=== PATIENT | female | born 1980 | race Caucasian/White ===

== ENCOUNTER 2017-07-25 18:30 | Observation (INO) | payer MEDICAID ==
[~2017-07-25] VITALS: Ht 172.7 cm; Wt 82.6 kg
[~2017-07-25 18:30] MED LIST: IBUP-2070 PO; PNV1TABL54 PO
[2017-07-25 18:46] VITALS: BP 104/60
== END 2017-07-25 19:10 | disposition home or self-care (01) ==
LOC: 4S 18:30
PROVIDERS: ADMIT Obstetrics & Gynecology; ATTEND Obstetrics & Gynecology
DX: O09.523 Supervision of elderly multigravida, third trimester (principal); Z3A.34 34 weeks gestation of pregnancy
CPT/HCPCS: 59025; G0378

== ENCOUNTER 2017-07-29 19:01 | Observation (INO) | payer MEDICAID ==
[~2017-07-29] VITALS: Ht 172.7 cm; Wt 83.1 kg
[2017-07-29] MEDS ORDERED: LEVO50 PO (20:18)
[2017-07-29 20:21] VITALS: BP 101/57
== END 2017-07-29 21:15 | disposition home or self-care (01) ==
LOC: 4S 19:01
PROVIDERS: ADMIT Obstetrics & Gynecology; ATTEND Obstetrics & Gynecology
DX: O09.523 Supervision of elderly multigravida, third trimester (principal); O99.283 Endocrine, nutritional and metabolic diseases complicating pregnancy, third trimester; E03.9 Hypothyroidism, unspecified; Z3A.35 35 weeks gestation of pregnancy
CPT/HCPCS: 59025; G0378

== ENCOUNTER 2017-08-08 12:00 | Observation (INO) | payer MEDICAID ==
[~2017-08-08] VITALS: Ht 172.7 cm; Wt 82.6 kg
[~2017-08-08 12:00] MED LIST changes: +LEVO50 PO
[2017-08-08] MEDS ORDERED: FERR-82 PO (12:17)
[2017-08-08 12:18] VITALS: BP 102/58
== END 2017-08-08 12:40 | disposition home or self-care (01) ==
LOC: 4S 12:00
PROVIDERS: ADMIT Obstetrics & Gynecology; ATTEND Obstetrics & Gynecology
DX: O09.523 Supervision of elderly multigravida, third trimester (principal); O99.283 Endocrine, nutritional and metabolic diseases complicating pregnancy, third trimester; E03.9 Hypothyroidism, unspecified; Z3A.36 36 weeks gestation of pregnancy
CPT/HCPCS: 59025; G0378

== ENCOUNTER 2017-08-11 08:00 | Observation (INO) | payer MEDICAID ==
[~2017-08-11] VITALS: Ht 170.2 cm; Wt 83.9 kg
[~2017-08-11 08:00] MED LIST changes: +FERR-82 PO; -IBUP-2070 PO
[2017-08-11 08:24] VITALS: BP 106/64
== END 2017-08-11 09:00 | disposition home or self-care (01) ==
LOC: 4S 08:00
PROVIDERS: ADMIT Obstetrics & Gynecology; ATTEND Obstetrics & Gynecology
DX: O09.523 Supervision of elderly multigravida, third trimester (principal); Z3A.36 36 weeks gestation of pregnancy
CPT/HCPCS: 59025; G0378

== ENCOUNTER 2017-08-15 18:30 | Observation (INO) | payer MEDICAID | END 2017-08-15 19:55 | disposition home or self-care (01) | LOC: 4S 18:30 | PROVIDERS: ADMIT Obstetrics & Gynecology; ATTEND Obstetrics & Gynecology | DX: O99.283 Endocrine, nutritional and metabolic diseases complicating pregnancy, third trimester (principal); E03.9 Hypothyroidism, unspecified; O09.523 Supervision of elderly multigravida, third trimester; Z3A.37 37 weeks gestation of pregnancy | CPT/HCPCS: 59025; G0378 ==

== ENCOUNTER 2017-08-18 18:35 | Observation (INO) | payer MEDICAID ==
[~2017-08-18] VITALS: Ht 172.7 cm; Wt 86.2 kg
== END 2017-08-18 19:40 | disposition home or self-care (01) ==
LOC: 4S 18:35
PROVIDERS: ADMIT Obstetrics & Gynecology; ATTEND Obstetrics & Gynecology
DX: O09.523 Supervision of elderly multigravida, third trimester (principal); Z3A.37 37 weeks gestation of pregnancy
CPT/HCPCS: 59025; G0378

== ENCOUNTER 2017-08-22 18:40 | Observation (INO) | payer MEDICAID | END 2017-08-22 19:15 | disposition home or self-care (01) | LOC: 4S 18:40 | PROVIDERS: ADMIT Obstetrics & Gynecology; ATTEND Obstetrics & Gynecology | DX: O09.523 Supervision of elderly multigravida, third trimester (principal); O99.283 Endocrine, nutritional and metabolic diseases complicating pregnancy, third trimester; E03.9 Hypothyroidism, unspecified; Z3A.38 38 weeks gestation of pregnancy | CPT/HCPCS: 59025; G0378 ==

== ENCOUNTER 2017-08-25 18:44 | Observation (INO) | payer MEDICAID ==
[2017-08-25 19:50] VITALS: BP 105/63
== END 2017-08-25 21:15 | disposition home or self-care (01) ==
LOC: 4S 18:44
PROVIDERS: ADMIT Obstetrics & Gynecology; ATTEND Obstetrics & Gynecology
DX: O99.283 Endocrine, nutritional and metabolic diseases complicating pregnancy, third trimester (principal); E03.9 Hypothyroidism, unspecified; O09.523 Supervision of elderly multigravida, third trimester; Z3A.38 38 weeks gestation of pregnancy
CPT/HCPCS: 59025; G0378

== ENCOUNTER 2017-08-29 18:37 | Observation (INO) | payer MEDICAID ==
[~2017-08-29] VITALS: Ht 172.7 cm; Wt 86.2 kg
[2017-08-29 18:54] VITALS: BP 108/68
== END 2017-08-29 19:20 | disposition home or self-care (01) ==
LOC: 4S 18:37
PROVIDERS: ADMIT Obstetrics & Gynecology; ATTEND Obstetrics & Gynecology
DX: O09.523 Supervision of elderly multigravida, third trimester (principal); Z3A.39 39 weeks gestation of pregnancy
CPT/HCPCS: 59025; G0378

== ENCOUNTER 2017-09-02 18:36 | Observation (INO) | payer MEDICAID ==
[~2017-09-02] VITALS: Ht 203.2 cm; Wt 85.9 kg
[2017-09-02 18:55] VITALS: BP 107/67
== END 2017-09-02 19:20 | disposition home or self-care (01) ==
LOC: 4S 18:36
PROVIDERS: ADMIT Obstetrics & Gynecology; ATTEND Obstetrics & Gynecology
DX: O48.0 Post-term pregnancy (principal); O09.523 Supervision of elderly multigravida, third trimester; Z3A.40 40 weeks gestation of pregnancy
CPT/HCPCS: 59025; G0378

== ENCOUNTER 2017-09-04 01:06 | Inpatient (IN) | payer MEDICAID ==
[~2017-09-04] VITALS: Ht 172.7 cm; Wt 86.8 kg
[2017-09-04 01:41] VITALS: BP 126/67
[2017-09-04] MEDS ORDERED: INFLUENZA VIRUS VACCINE QVS 2017-18 (3YR+)/PF 60 MCG/0.5 ML SYRINGE IM ONE (02:00)
[2017-09-04] MEDS ORDERED: RINGERS SOLUTION,LACTATED 1,000 ML IV ONE ×2 (02:13→02:14)
[2017-09-04] MEDS ORDERED: RINGERS SOLUTION,LACTATED 1,000 ML IV SCH (02:22)
[2017-09-04] MEDS ORDERED: RINGERS SOLUTION,LACTATED 1,000 ML IV PRN (02:22)
[2017-09-04] MEDS ORDERED: OXYTOCIN 30 UNITS/LACT RINGERS 500 ML IV ONE ×2 (02:22→04:02)
[2017-09-04] MEDS ORDERED: METOCLOPRAMIDE HCL 5 MG/ML 2 ML VIAL IVP PRN (02:30)
[2017-09-04] MEDS ORDERED: METHYLERGONOVINE MALEATE 0.2 MG/ML VIAL IM PRN (02:30)
[2017-09-04] MEDS ORDERED: CITRIC ACID/SODIUM CITRATE 30 ML SOLUTION UDCUP PO PRN (02:30)
[2017-09-04 02:48] LABS: BASOPHILS % (AUTO) 0.3 % (0.0-2.0); EOSINOPHILS % (AUTO) 0.3 % (1.0-6.0); HEMATOCRIT 32.8 % (36-46); HEMOGLOBIN 11.2 g/dL (12.0-16.0); LYMPHOCYTES # (AUTO) 1.7 K/uL (1.0-4.8); LYMPHOCYTES % (AUTO) 18.4 % (22.0-44.0); MEAN CORPUSCULAR HEMOGLOBIN 29.9 pg (26.0-34.0); MEAN CORPUSCULAR HGB CONC 34.2 G/dL (31.0-37.0); MEAN CORPUSCULAR VOLUME 88 fL (80-100); MONOCYTES # (AUTO) 0.4 K/uL (0.1-1.0); MONOCYTES % (AUTO) 4.4 % (2.0-9.0); NEUTROPHILS # (AUTO) 7.1 K/uL (1.8-7.7); NEUTROPHILS % (AUTO) 76.6 % (40.0-70.0); PLATELET COUNT (AUTO)-OB 161 K/uL (150-450); RED BLOOD CELL COUNT(AUTO) 3.75 MIL/uL (4.00-5.20)
[2017-09-04] MEDS ORDERED: LIDOCAINE HCL/PF 2% 5 ML VIAL ONE (02:55)
[2017-09-04] MEDS ORDERED: ROPIVACAINE HCL 0.2% ED ONE (02:55)
[2017-09-04] MEDS ORDERED: LIDOCAINE HCL/PF 1% 30 ML VIAL ONE (03:04)
[2017-09-04] MEDS ORDERED: LEVO50TA11 PO (03:49)
[2017-09-04] MEDS ORDERED: GLYCERIN/WITCH HAZEL LEAF 40 PADS JAR TP PRN (04:15)
[2017-09-04] MEDS ORDERED: LANOLIN 7 GM OINTMENT TP PRN (04:15)
[2017-09-04] MEDS ORDERED: BENZOCAINE 20%/MENTHOL 56 GM SPRAY CANISTER TP PRN (04:15)
[2017-09-04] MEDS ORDERED: LIDOCAINE HCL/PF 1% 30 ML VIAL INJ PRN (04:15)
[2017-09-04] MEDS ORDERED: OxyCODONE HCL/ACETAMINOPHEN 5-325 MG TABLET PO PRN ×2 (04:15)
[2017-09-04] MEDS: IBUPROFEN 800 MG TABLET PO PRN ×3 (05:15→21:17)
[2017-09-04] MEDS: LEVOTHYROXINE SODIUM 50 MCG TABLET PO SCH (07:33)
[2017-09-04] MEDS ORDERED: OXYGEN THERAPY IH SCH (08:00)
[2017-09-04] MEDS: MAGNESIUM HYDROXIDE SUSPENSION 30 ML UDCUP PO PRN ×2 (09:07→21:15)
[2017-09-05 05:56] LABS: BASOPHILS # (AUTO) 0.03 K/uL (0.00-0.20); BASOPHILS % (AUTO) 0.4 % (0.0-2.0); EOSINOPHILS # (AUTO) 0.08 K/uL (0.00-0.70); HEMATOCRIT 30.4 % (36-46); LYMPHOCYTES # (AUTO) 2.9 K/uL (1.0-4.8); LYMPHOCYTES % (AUTO) 37.8 % (22.0-44.0); MEAN CORPUSCULAR HEMOGLOBIN 29.3 pg (26.0-34.0); MEAN CORPUSCULAR HGB CONC 32.9 G/dL (31.0-37.0); MEAN CORPUSCULAR VOLUME 89 fL (80-100); MONOCYTES # (AUTO) 0.6 K/uL (0.1-1.0); MONOCYTES % (AUTO) 7.4 % (2.0-9.0); NEUTROPHILS # (AUTO) 4.1 K/uL (1.8-7.7); NEUTROPHILS % (AUTO) 53.5 % (40.0-70.0); PLATELET COUNT (AUTO)-OB 146 K/uL (150-450); RED BLOOD CELL COUNT(AUTO) 3.41 MIL/uL (4.00-5.20); RED CELL DISTRIBUTION WIDTH 16.8 % (11.5-14.5)
[2017-09-05] MEDS: LEVOTHYROXINE SODIUM 50 MCG TABLET PO SCH (07:45)
[2017-09-05] MEDS ORDERED: IBUP-2070 PO (09:50)
[2017-09-05] MEDS ORDERED: IBUP-2354 PO (09:50)
[2017-09-05] MEDS ORDERED: FERR-89 PO (09:52)
[2017-09-05] MEDS ORDERED: DSS100 PO (09:53)
[2017-09-05] MEDS: IBUPROFEN 800 MG TABLET PO PRN (12:00)
== END 2017-09-05 13:20 | disposition home or self-care (01) | DRG 560 ==
LOC: OBSVTOIN 01:06 → 4S 01:06
PROVIDERS: ADMIT Obstetrics & Gynecology; ATTEND Obstetrics & Gynecology
PROC: 10E0XZZ Delivery of Products of Conception, External Approach (ICD-10-PCS; principal; 2017-09-04)
PROC: 0KQM0ZZ Repair Perineum Muscle, Open Approach (ICD-10-PCS; 2017-09-04)
PROC: 3E0234Z Introduction of Serum, Toxoid and Vaccine into Muscle, Percutaneous Approach (ICD-10-PCS; 2017-09-04)
DX: O99.284 Endocrine, nutritional and metabolic diseases complicating childbirth (principal); E03.9 Hypothyroidism, unspecified; O70.1 Second degree perineal laceration during delivery; Z3A.40 40 weeks gestation of pregnancy; Z37.0 Single live birth; Z23 Encounter for immunization; O09.529 Supervision of elderly multigravida, unspecified trimester
CPT/HCPCS: 86850; 86900; 86901; J2590; J2795; J3490; J7120